=== PATIENT | male | born 1985 | race Caucasian/White ===

== ENCOUNTER 2020-06-01 20:49 | Emergency (ER) | payer MEDICAID ==
[~2020-06-01] VITALS: Ht 182.9 cm; Wt 77.2 kg
[2020-06-01 20:50] VITALS: BP 166/98
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
[2020-06-01] MEDS ORDERED: acetaminophen 325mg tablet PO ONE (21:20)
[2020-06-01] MEDS ORDERED: ibuprofen tablet 400 MG TABLET PO ONE (21:20)
[2020-06-01] MEDS ORDERED: bacitracin 15gm ointment TP ONE (21:35)
== END 2020-06-01 21:41 ==
LOC: ER 20:50
DX: S80.01XA Contusion of right knee, initial encounter (principal); S80.211A Abrasion, right knee, initial encounter; F12.90 Cannabis use, unspecified, uncomplicated; Z72.89 Other problems related to lifestyle; V29.9XXA Motorcycle rider (driver) (passenger) injured in unspecified traffic accident, initial encounter; Y93.89 Activity, other specified; Y92.89 Other specified places as the place of occurrence of the external cause; Y99.8 Other external cause status
CPT/HCPCS: 73564; 99284

== ENCOUNTER → 2020-12-07 | Emergency (ER) | payer MEDICAID, OTHER ==
[~2020-12-07] VITALS: Ht 182.9 cm; Wt 90.0 kg
[~2020-12-07] MED LIST: ampicillin/sulbac 3gm/NS 100ml 100 ML IV SCH; morphine 4 MG/ML inj SYRINge IV ONE
[2020-12-07 02:15] VITALS: BP 165/94
[2020-12-07 03:33] LABS: ALBUMIN 4.5 G/DL (3.4-5.0); ANION GAP 10 (8-16); BASOPHILS % (AUTO) 0.1 % (0-1); BLOOD UREA NITROGEN 22 MG/DL (7-18); BUN/CREATININE RATIO 18.6 (5.4-32.0); CHLORIDE 107 MMOL/L (99-107); CREATININE 1.18 MG/DL (0.60-1.10); EOSINOPHILS % (AUTO) 0 % (0-6); GLUCOSE 130 MG/DL (70-104); HEMATOCRIT 46.1 % (42.0-52.0); HEMOGLOBIN 15.5 g/dl (14.0-17.9); LYMPHOCYTES # (AUTO) 2.1 X10'3 (1.1-4.8); LYMPHOCYTES % (AUTO) 16.5 % (21-51); MEAN CORPUSCULAR HEMOGLOBIN 28.6 PG (27.0-31.0); MEAN CORPUSCULAR HGB CONC 33.6 g/dL (33.0-36.5); MEAN CORPUSCULAR VOLUME 84.9 FL (78-98); MEAN PLATELET VOLUME 7.5 FL (7.4-10.4); MONOCYTES # (AUTO) 1.2 X10'3 (0-0.9); MONOCYTES % (AUTO) 9.8 % (2-12); NEUTROPHILS # (AUTO) 9.3 X10'3 (1.8-7.7); NEUTROPHILS % (AUTO) 73.6 % (42-75); PLATELET COUNT 217 X10'3 (140-440); POTASSIUM 3.1 MMOL/L (3.5-5.1); RED BLOOD COUNT 5.42 X10'6 (4.70-6.10); RED CELL DISTRIBUTION WIDTH 13.5 % (11.5-14.5); SODIUM 143 MMOL/L (135-145); TOTAL CARBON DIOXIDE 25.6 MMOL/L (24-32); WHITE BLOOD COUNT 12.6 X10'3 (4.5-11.0); eGFR 71 ML/MIN
== END | disposition home or self-care (01) ==
LOC: ER 02:12
DX: S02.642B Fracture of ramus of left mandible, initial encounter for open fracture (principal); Z20.822 Contact with and (suspected) exposure to COVID-19; F12.90 Cannabis use, unspecified, uncomplicated; Z72.89 Other problems related to lifestyle; V00.131A Fall from skateboard, initial encounter; Y93.I9 Activity, other involving external motion; Y92.59 Other trade areas as the place of occurrence of the external cause; Y99.8 Other external cause status
CPT/HCPCS: 36415; 70486; 80048; 85025; 85610; 87635; 96365; 96375; 99284; C9803; J2270; J0295

== ENCOUNTER 2021-01-17 17:34 | Emergency (ER) | payer SELFPAY ==
[~2021-01-17] VITALS: Ht 182.9 cm; Wt 80.0 kg
[2021-01-17 17:47] VITALS: BP 146/79
== END 2021-01-17 21:55 | disposition left against medical advice (07) ==
LOC: ER 17:35
DX: K13.79 Other lesions of oral mucosa (principal); Z53.21 Procedure and treatment not carried out due to patient leaving prior to being seen by health care provider